=== PATIENT | female | born 1990 ===

== ENCOUNTER 2018-02-27 13:09 | Emergency (ER) | payer BC ==
[2018-02-27 13:37] VITALS: BP 124/76
--- NOTE | 2018-02-27 14:02 | UC ---
Throat Pain/Nasal Eliezer HPI - HPI Summary HPI Summary: 28 y/o female presents to the urgent care c/o painful bumps in the posterior and laterla sides of the tonghe for the past week. Pt report she was exposed to poison sherice on 02/21/[address] going to the Urgent care in [place] she noticed her tongue had the bumps. She was Rx Prednisone PO and Cetirizine PO which she still takes it. She was advised to increase hydration for her tongue bumps. This past Friday she had a dog Bite on Rt forearm and she was Rx Augmenting. bumps are getting painful. Pain is 2/10 at touch. Pt denies fever, sore throat, difficulty breathing, hoarseness, SOB, chest pain, abdominal pain, recent weight lost, N/V/D, fatigue. n - History of Current Complaint Chief Complaint: UCSkin Stated Complaint: MOUTH COMPLAINT Hx Obtained From: Patient Hx Last Menstrual Period: 02/13/18 Onset/Duration: Gradual Onset, Lasting Days - 1 week, Still Present, Worse Since - 2 days Severity: Mild Pain Intensity: 4 Pain Scale Used: 0-10 Numeric Cough: None Associated Signs & Symptoms: Positive: Negative, Other - mouth ulcer in the posterior tongue and on sides. Negative: Dysphagia, Drooling, Wheezing, Hoarseness - Epiglottits Risk Factors Epiglottis Risk Factors: Negative - Allergies/Home Medications Allergies/Adverse Reactions: Allergies Allergy/AdvReac Type Severity Reaction Status Date / Time No Known Allergies Allergy Verified 02/27/18 13:37 Home Medications: Home Medications Amoxicillin/Clavulanate TAB* [Augmentin TAB 250*] 1 tab PO BID 02/27/18 [ History Confirmed 02/27/18] Cetirizine HCl [All Day Allergy] 10 mg PO DAILY 02/27/18 [History Confirmed 10/10] Spironolactone 100 mg PO DAILY 02/27/18 [History Confirmed 02/27/18] predniSONE [Deltasone 20 MG TAB] 40 mg PO DAILY 02/27/18 [History Confirmed 10/10] PMH/Surg Hx/FS Hx/Imm Hx Previously Healthy: Yes Other Endocrine History: Acne - Surgical History Surgical History: Yes Surgery Procedure, Year, and Place: [place] teeth - Family History Known Family History: Positive: Hypertension, Diabetes - Social History Occupation: Employed Full-time Lives: With Family Alcohol Use: None Alcohol Amount: 3 beers per week Substance Use Type: None Smoking Status (MU): Former Smoker Type: Cigarettes Amount Used/How Often: 1 PPW Length of Time of Smoking/Using Tobacco: 3 years Have You Smoked in the Last Year: Yes Review of Systems Constitutional: Negative Skin: Negative Eyes: Negative ENT: Other - ulcers in the posterior tongue and on the sides Respiratory: Negative Cardiovascular: Negative Gastrointestinal: Negative Genitourinary: Negative Motor: Negative Neurovascular: Negative Musculoskeletal: Negative Neurological: Negative Psychological: Negative Is Patient Immunocompromised?: No All Other Systems Reviewed And Are Negative: Yes Physical Exam - Summary Physical Exam Summary: VITAL SIGNS: Reviewed. GENERAL: Patient is a well developed and nourished female who is sitting comfortable in the examining table. Patient is not in any acute respiratory distress. HEAD AND FACE: No signs of trauma. No ecchymosis, hematomas or skull depressions. No sinus tenderness. EYES: PERRLA, EOMI x 2, No injected conjunctiva, no nystagmus. No photophobia. EARS: Hearing grossly intact. Ear canals and tympanic membranes are within normal limits. Nose: nasal mucosa WNL MOUTH: no erythema, no tonsillar enlargement. Uvula in midline. tongue w/ erythematous taste papillas in the porsterior tongue and on both lateral side of the tongue, mild tenderness to palpation, w/ mild swelling. no discharge, NECK: Supple, trachea is midline, Positive anterior cervical lymphadenopathy, no JVD, no carotid bruit, no c-spine tenderness, neck with full ROM. No meningeal signs, no Kernig's or brudzinskis signs. CHEST: Symmetric, no tenderness at palpation LUNGS: Clear to auscultation bilaterally. No wheezing or crackles. CVS: Regular rate and rhythm, S1 and S2 present, no murmurs or gallops appreciated. ABDOMEN: Soft, non-tender. No signs of distention. No rebound no guarding, and no masses palpated. Bowel sounds are normal. EXTREMITIES: FROM in all major joints, no edema, no cyanosis or clubbing. NEURO: Alert and oriented x 3. No acute neurological deficits. Speech is normal and follows commands. SKIN: Dry and warm Triage Information Reviewed: Yes Vital Signs: Initial Vital Signs Temp 98.4 F 02/27/18 13:31 Pulse 77 02/27/18 13:31 Resp 18 02/27/18 13:31 BP 124/76 02/27/18 13:31 Pulse Ox 99 02/27/18 13:31 Throat Pain/Nasal Course/Dx - Course Course Of Treatment: 28 y/o female presents to the urgent care c/o painful bumps in the posterior and laterla sides of the tonghe for the past week. Pt report she was exposed to poison sherice on 02/21/[address] going to the Urgent care in [place] she noticed her tongue had the bumps. She was Rx Prednisone PO and Cetirizine PO which she still takes it. She was advised to increase hydration for her tongue bumps. This past Friday she had a dog Bite on Rt forearm and she was Rx Augmenting. bumps are getting painful. Pain is 2/10 at touch. Pt denies fever, sore throat, difficulty breathing, hoarseness, SOB, chest pain, abdominal pain, recent weight lost, N/V/D, fatigue. Hx obtained. Pt w/ probably aphthous ulcers on examination. Pt Rx Triamcinolone paste to alleviate symptoms and advised to continue taking her Prednsione taper dose for her Poison sherice rash and Augmentin PO for dog bite. Advised to f/u w/ PCP if not improvemement in 1 week for further blood work and management. D/C instructions explained. Pt understood and aggreed w/ plan of care. - Differential Dx/Diagnosis Differential Diagnosis/HQI/PQRI: Laryngitis, Mononucleosis, Otitis Media, Pharyngitis, Tonsillitis, Other - aphthous ulcer Provider Diagnoses: 1- posterior and lateral tongue apthous ulcers Discharge - Sign-Out/Discharge Documenting (check all that apply): Patient Departure - d/c home All imaging exams completed and their final reports reviewed: No Studies - Discharge Plan Condition: Stable Disposition: HOME Prescriptions: Triamcinolone PASTE 0.1% (NF) [Triamcinolone 0.1% PASTE *] 1 applic TOPICAL BID PC #1 tube Patient Education Materials: Canker Sores (ED) Referrals: [facility] [Outside] - 1 Week Additional Instructions: 1-Please apply Triamcinolone Paste as directed to alleviate symptoms. Increase fluid intake, eat well, rest and avoid strenuous exercise. Avoid eatin gsour or bitter foods to decrease swelling of your posterior taste buds 2- Please continue taking Prednisone PO taper dose for your Poison Sherice rash. 3- Please F/u w/ your PCP if not improvement of symptoms in 1 week for further blood work and management. - Billing Disposition and Condition Condition: STABLE Disposition: Home
== END 2018-02-27 14:45 | disposition home or self-care (01) ==
LOC: UCEAST 13:09
DX: K12.0 Recurrent oral aphthae (principal); Z87.891 Personal history of nicotine dependence
CPT/HCPCS: 36415; 86703; 99212; G0463